=== PATIENT | female | born 1975 | race Caucasian/White ===

== ENCOUNTER 2017-06-07 10:07 | Emergency (ER) | payer OTHER, MEDICAID ==
[~2017-06-07] VITALS: Ht 157.5 cm; Wt 69.1 kg
[2017-06-07 11:42] LABS: BASOPHIL % 0.4 % (0-2); PLATELET COUNT 282 x10^3mcL (130-400); RED CELL DISTRIBUTION WIDTH 12.9 % (11.5-14.5)
[2017-06-07 12:01] LABS: CALCIUM 9.1 mg/dL (8.5-10.1); CHLORIDE SERUM 107 mmol/L (98-107); CREATININE SERUM 0.7 mg/dL (0.6-1.0); GFR1 > 60 mL/min; GLUCOSE SERUM 104 mg/dL (74-106); POTASSIUM SERUM 4.7 mmol/L (3.5-5.1); SODIUM SERUM 143 mmol/L (136-145)
[2017-06-07 12:06] LABS: ALBUMIN 3.6 g/dL (3.4-5.0); ALKALINE PHOSPHATASE 93 U/L (46-116); ALT/SGPT 22 U/L (14-59); AST/SGOT 19 U/L (15-37); BILIRUBIN TOTAL 0.27 mg/dL (0.20-1.00); TOTAL PROTEIN, SERUM 7.9 g/dL (6.4-8.2)
[2017-06-07 12:55] VITALS: BP 98/71
== END 2017-06-07 12:55 | disposition home or self-care (01) ==
LOC: ED 10:07
PROVIDERS: Emergency Medicine
DX: G47.00 Insomnia, unspecified (principal); M79.1 Myalgia
CPT/HCPCS: 36415; J1885; Q0092

== ENCOUNTER 2020-01-08 06:17 | Emergency (ER) | payer OTHER, BC, MEDICAID ==
[~2020-01-08] VITALS: Ht 154.9 cm; Wt 54.0 kg
[2020-01-08 06:38] VITALS: Ht 154.9 cm; Wt 54.0 kg
[2020-01-08 08:32] VITALS: BP 115/69
== END 2020-01-08 08:32 | disposition home or self-care (01) ==
LOC: ED 06:17
DX: S16.1XXA Strain of muscle, fascia and tendon at neck level, initial encounter (principal); S80.02XA Contusion of left knee, initial encounter; S50.11XA Contusion of right forearm, initial encounter; V49.49XA Driver injured in collision with other motor vehicles in traffic accident, initial encounter; Y93.I9 Activity, other involving external motion; Y92.413 State road as the place of occurrence of the external cause; Y99.8 Other external cause status

== ENCOUNTER 2020-06-14 16:18 | Emergency (ER) | payer BC, MEDICAID ==
[~2020-06-14] VITALS: Ht 154.9 cm; Wt 52.6 kg
[2020-06-14 16:24] VITALS: Ht 154.9 cm; Wt 52.6 kg
[2020-06-14 17:39] LABS: BASOPHIL % 0.2 % (0.2-1.3); PLATELET COUNT 220 x10^3mcL (179-408)
[2020-06-14 17:48] LABS: CARBON DIOXIDE 30.7 mmol/L (21-32); CHLORIDE SERUM 106 mmol/L (98-107); CREATININE SERUM 0.4 mg/dL (0.6-1.0); GFR1 > 60 mL/min; GLUCOSE SERUM 80 mg/dL (74-106); POTASSIUM SERUM 3.7 mmol/L (3.5-5.1); SODIUM SERUM 144 mmol/L (136-145)
[2020-06-14 17:53] LABS: ALBUMIN 3.8 g/dL (3.4-5.0); ALKALINE PHOSPHATASE 88 U/L (46-116); ALT/SGPT 27 U/L (14-59); AST/SGOT 20 U/L (15-37); BILIRUBIN TOTAL 0.2 mg/dL (0.20-1.00); TOTAL PROTEIN, SERUM 7.7 g/dL (6.4-8.2)
[2020-06-14 19:18] LABS: microscopic required? NO
[2020-06-14 19:32] LABS: UA SPECIFIC GRAVITY <=1.005 (1.005-1.035); urine erythrocyte NEGATIVE (NEGATIVE)
[2020-06-14 19:33] VITALS: BP 99/53
== END 2020-06-14 19:33 | disposition home or self-care (01) ==
LOC: ED 16:18
PROVIDERS: Emergency Medicine
DX: M79.10 Myalgia, unspecified site (principal); M54.9 Dorsalgia, unspecified; J02.9 Acute pharyngitis, unspecified; R07.89 Other chest pain; R53.1 Weakness; R00.2 Palpitations; R06.02 Shortness of breath; Z20.822 Contact with and (suspected) exposure to COVID-19
CPT/HCPCS: J7030; U0003